=== PATIENT | female | born 1995 | race African-American/Black ===

== ENCOUNTER 2019-03-21 18:52 | Emergency (ER) | payer SELFPAY ==
[~2019-03-21] VITALS: Ht 160 cm; Wt 61.2 kg
[~2019-03-21 18:52] MED LIST: IBUP-1060 PO; NAPR-682 PO; ORPH100T PO
[2019-03-21 18:56] VITALS: BP 133/84
[2019-03-21] MEDS ORDERED: NAPROXEN 500 MG TABLET PO STA (19:05)
[2019-03-21] MEDS ORDERED: HYDROcodone/APAP 5/325MG 1 TAB TABLET PO ONE (19:15)
[2019-03-21] MEDS ORDERED: ONDANSETRON ODT 4 MG TAB.RAPDIS. PO ONE (19:15)
--- NOTE | 2019-03-21 19:25 | RAD ---
Left wrist 3 views. HISTORY: Pain after a fall 3 views were taken of the left wrist. On the AP view there is a longitudinal lucency which suggests a nondisplaced fracture of the distal radius. The ulnar styloid is a separate bone which could normal variation or an old injury. There is not other evidence of an acute fracture. IMPRESSION: 1. Possible nondisplaced fracture distal radius. Electronically signed by: Jhonny Barnett MD (03/21/2019 7:22 PM) [facility]
[2019-03-21] MEDS ORDERED: HYDR-3164 PO (20:25)
--- NOTE | 2019-03-21 20:25 | PHYS DOC ---
Past Medical History Past Medical History: Asthma, Hypertension, Other Additional Past Medical Histor: "enlarged thyroid" Past Surgical History: No Surgical History Alcohol Use: Occasionally Drug Use: Marijuana Adult General Chief Complaint Chief Complaint: WRIST PAIN HPI HPI Patient is a 23 year old female who presents to the ED today complaining of a sharp constant 8 out of 10 right wrist pain specifically on the dorsal aspect of the wrist that began a couple minutes ago after she fell rollerskating. Patient denies any loss of consciousness, she states the pain is worse on flexion and extension of the wrist. She states right now nothing specifically relieves the pain. Denies any loss of consciousness when she fell Review of Systems Review of Systems Constitutional: Denies fever or chills [] Musculoskeletal: Reports right wrist pain Integument: Denies rash or skin lesions [] Neurologic: Denies headache, focal weakness or sensory changes [] All other systems were reviewed and found to be within normal limits, except as documented in this note. Current Medications Current Medications Current Medications Medications (Trade) Dose Ordered Sig/Onel Start Time Stop Time Status Last Admin Dose Admin Acetaminophen/ Hydrocodone Bitart (Lortab 5/325) 2 tab 1X ONCE 03/21/19 19:15 03/21/19 19:16 DC 03/21/19 19:11 2 TAB Naproxen (Naprosyn) 500 mg 1X STAT 03/21/19 19:05 03/21/19 19:06 DC 03/21/19 19:11 500 MG Ondansetron HCl (Zofran Odt) 4 mg 1X ONCE 03/21/19 19:15 03/21/19 19:16 DC 03/21/19 19:10 4 MG Allergies Allergies Allergies Coded Allergies Type Severity Reaction Last Updated Verified No Known Drug Allergies 05/20/14 No Physical Exam Physical Exam Constitutional: Well developed, well nourished, no acute distress, non-toxic appearance. [] Skin: Warm, dry, no erythema, no rash. [] Back: No tenderness, no CVA tenderness. [] Extremities: Right wrist with no obvious deformity, soft tissue swelling noted on the dorsal aspect of the wrist. Tenderness on palpation of the distal dorsal aspect of the radius. No scaphoid tenderness. Full range of motion to the right fingers. Limited range of motion to the wrist due to pain. Adequate radial, medial, ulnar sensation to the right hand. +2 right radial pulse. Cap refill less than 2 seconds the right fingers. Neurologic: Alert and oriented X 3, normal motor function, normal sensory function, no focal deficits noted. [] Psychologic: Affect normal, judgement normal, mood normal. [] Current Patient Data Vital Signs Vital Signs Date Time Temp Pulse Resp B/P (MAP) Pulse Ox O2 Delivery O2 Flow Rate FiO2 03/21/19 18:56 98.1 94 18 133/84 (100) 100 Room Air 98.1 EKG EKG [] Radiology/Procedures Radiology/Procedures []PROCEDURE: WRIST 3V RIGHT Left wrist 3 views. HISTORY: Pain after a fall 3 views were taken of the left wrist. On the AP view there is a longitudinal lucency which suggests a nondisplaced fracture of the distal radius. The ulnar styloid is a separate bone which could normal variation or an old injury. There is not other evidence of an acute fracture. IMPRESSION: 1. Possible nondisplaced fracture distal radius. Electronically signed by: Jhonny Dalton MD (03/21/2019 7:22 PM) [facility] DICTATED and SIGNED BY: JHONNY DALTON MD DATE: 03/21/191921 Course & Med Decision Making Course & Med Decision Making Pertinent Labs and Imaging studies reviewed. (See chart for details) This is a 23-year-old female patient presenting to the ED today with right wrist pain status post falling, right wrist x-rays interpreted by radiologist were noted for possible nondisplaced distal radius fracture. Patient was placed in a sugar tong splint by the ordnance technician, neurovascular exam done by me is intact, ice elevation encouraged. Follow-up with orthopedic doctor on Sunday. Dragon Disclaimer Dragon Disclaimer This electronic medical record was generated, in whole or in part, using a voice recognition dictation system. Departure Departure Impression: Primary Impression: Fall from standing Additional Impression: Distal radial fracture Disposition: 01 HOME, SELF-CARE Condition: STABLE Referrals: NO PCP (PCP) JANA READ II, MD Call his office on Sunday and set up a follow-up appointment Patient Instructions: Wrist Fracture Additional Instructions: You were seen for right wrist fracture after falling, ice elevate the extremity. Contact the provided orthopedic doctor on Sunday and set up a follow-up appointment in the office with them. Take the prescribed pain medicine as needed for pain. Scripts Hydrocodone/Apap 5-325 (NORCO 5-325 TABLET) 1 Each Tablet 1 TAB PO Q6HRS, #20 TAB Prov: FILOMENA JOHN APRN 03/21/19 Problem Qualifiers Primary Impression: Fall from standing Encounter type: initial encounter Qualified Codes: W19.XXXA - Unspecified fall, initial encounter Additional Impression: Distal radial fracture Encounter type: initial encounter Fracture type: closed Fracture morphology: other fracture Laterality: right Qualified Codes: S52.591A - Other fractures of lower end of right radius, initial encounter for closed fracture FILOMENA JOHN APRN March 21, 2019 20:25
== END 2019-03-21 20:37 | disposition home or self-care (01) ==
LOC: ER 18:52
DX: S52.591A Other fractures of lower end of right radius, initial encounter for closed fracture (principal); J45.909 Unspecified asthma, uncomplicated; I10 Essential (primary) hypertension; V00.121A Fall from non-in-line roller-skates, initial encounter; Y93.51 Activity, roller skating (inline) and skateboarding; Y92.89 Other specified places as the place of occurrence of the external cause; Y99.8 Other external cause status
CPT/HCPCS: 29125; 73110; 99284; Q0162